=== PATIENT | female | born 1980 | race Caucasian/White ===

== ENCOUNTER → 2017-10-23 | Day surgery (SDC) | payer OTHER ==
[2017-10-02 16:02] VITALS: Ht 157.5 cm; Wt 68.8 kg
[~2017-10-23] VITALS: Ht 157.5 cm; Wt 68.8 kg
[~2017-10-23] MED LIST: ABL10 PO; ALPR-411 PO; ALPR1TAB3 PO; AMPH20TA2 PO; ATOR-22 PO; FNTTP25 EX; GEMF600T PO; IBUP-1050 PO; IBUPROFEN 600 MG TAB ONE; IBUPROFEN 600 MG TAB PO ONE; LACTATED RINGER'S 1000ML 1,000 ML IV SCH; METF1000 PO; METO50TA16 PO; OMEP40CA41 PO; ONDANSETRON 4MG OD TAB ONE; ONDANSETRON 4MG OD TAB PO ONE; OXYMTAB PO; PROM12.57 PO; PRZ/40 PO; SENN-61 PO; SITA100T3 PO; TIZA4CAP PO; TRAZ-122 PO
[2017-10-23 07:30] VITALS: BP 140/97; PULSE 80; TEMP 36.9; O2SAT 97
== END | disposition home or self-care (01) ==
LOC: C.ACU 06:40
PROVIDERS: ATTEND Internal Medicine
DX: I47.1 Supraventricular tachycardia (principal); Z53.9 Procedure and treatment not carried out, unspecified reason

== ENCOUNTER 2017-11-20 06:25 | Observation (INO) | payer OTHER ==
[2017-11-06 14:32] VITALS: BMI 27.0
[~2017-11-20] VITALS: Ht 157.5 cm; Wt 69.2 kg
[~2017-11-20 06:25] MED LIST changes: +CEFAZOLIN 1000MG IV PUSH 7.5 ML IV SCH; -IBUPROFEN 600 MG TAB ONE; -IBUPROFEN 600 MG TAB PO ONE; -ONDANSETRON 4MG OD TAB ONE; -ONDANSETRON 4MG OD TAB PO ONE
[2017-11-20 06:59] VITALS: BP 121/87; PULSE 94; TEMP 36.8; O2SAT 95; BMI 27.0
[2017-11-20] MEDS ORDERED: PROPOFOL IV EMULSION 10 MG/ML 100 ML VIAL IV ONE (07:27)
[2017-11-20] MEDS ORDERED: PROPOFOL IV EMULSION 10 MG/ML 20 ML VIAL IV ONE ×2 (07:47→10:57)
[2017-11-20] MEDS ORDERED: FENTANYL CITRATE INJ 50 MCG/1 ML 2 ML VIAL ONE ×3 (07:47→09:48)
[2017-11-20] MEDS ORDERED: LIDOCAINE HCL 2% 2 ML VIAL (20MG/ML) ONE (07:47)
[2017-11-20] MEDS ORDERED: MIDAZOLAM HCL 1 MG/ML 2ML VIAL ONE ×3 (07:47→08:32)
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
[2017-11-20] MEDS ORDERED: ISOPROTERENOL 200 MCG / 50ML D5W IV ONE ×2 (09:26→10:54)
[2017-11-20] MEDS ORDERED: PHENYLEPHRINE 100MCG/ML 5ML SYR ONE (09:54)
[2017-11-20] MEDS ORDERED: ATROPINE SULFATE 0.1 MG/ML 5ML SYR IV PRN (10:45)
[2017-11-20] MEDS ORDERED: ACETAMINOPHEN 325 MG TAB PO PRN (11:15)
[2017-11-20] MEDS ORDERED: IBUPROFEN 800 MG TAB PO PRN (11:15)
[2017-11-20] MEDS ORDERED: PROMETHAZINE HCL 25 MG TAB PO PRN (11:15)
--- NOTE | 2017-11-20 11:20 | [facility] Post Operative Brief Note ---
Immediate Operative Summary Operative Date Nov 20, 2017. Pre-Operative Diagnosis svt Post-Operative Diagnosis typical AVNRT Procedure(s) Performed EPS, 3d mapping of His bundle and C/S OS, LA pacing from C/S, isoprel drug challenge, slow pathway modification Surgeon rissa winston Gristmill Operator Surgeon(s) none Estimated Blood Loss <10cc Findings See Below see official report Fluids (cc crystalloids) 575 Specimens none Drains None Anesthesia Type MAC Complication(s) none Disposition Accompanied Pt To Recover: yes Disposition: rn cardiac cath holding-until PCU bed available
--- NOTE | 2017-11-20 11:22 | Discharge Instructions ---
Discharge Instructions Date of Service Nov 20, 2017. Admission Reason for Admission: Paroxysmal Supraventricular Tachycardia W/Anesthes Discharge Discharge Diagnosis / Problem: avnrt Discharge Goals Goal(s): Improve function Activity Recommendations Activity Limitations: as noted below Lifting Limitations: no more than 10 pounds (no heavy lifting or squating for 1 week) Shower/Bathe: tomorrow Driving or Machine Use: resume 1 day after discharge . Instructions / Follow-Up Instructions / Follow-Up ACTIVITY RECOMMENDATIONS: It is common to feel weak and fatigue for a few days. * Do not drive or operate any motorized equipment for the next 7 days. * Limit stair usage (2 or 3 trips a day only) for the next three days. * Do not lift anything heavier than 10 pounds for the next 7 days. * Do not engage in vigorous exercise or any sports for the next 7 days. * You may shower the day after your procedure, but do not immerse the area for three days. Cleanse the site gently with soap and water. SPECIAL CARE INSTRUCTIONS: * You may replace the pressure dressing or band-aid the morning after the procedure. * After your procedure, it is normal to have a small bruise or small lump at the site. Examine your site daily for any change in the bruise or lump, redness, swelling, drainage or numbness. Notify your doctor if any change. BLEEDING: * If there is a small amount of bleeding at the site, lie down and apply firm pressure with a clean cloth for ten minutes. When the bleeding stops, lie quietly keeping the procedure limb straight for six hours. Notify your doctor as soon as possible. * If the bleeding does not stop after ten minutes or if there is a large amount of bleeding or spurting, call 911 immediately. Continue to lie down and hold firm pressure until help arrives. SKIN IRRITATION: * You may experience some redness and/or swelling in the area where radiation was administered. If any skin irritation occurs, please contact your family physician. FOLLOW UP VISIT: Keep any scheduled doctor appointments. Current Hospital Diet Patient's current hospital diet: Regular Diet Discharge Diet Recommended Diet: Regular Diet Procedures Procedures Performed: EPS, 3d mapping of His bundle and C/S OS, LA pacing from C/S, isoprel drug challenge, slow pathway modification Pending Studies Studies pending at discharge: no Medical Emergencies . Who to Call and When: Medical Emergencies: If at any time you feel your situation is an emergency, please call 911 immediately. . Non-Emergent Contact Non-Emergency issues call your: Chute Tapper . . "Provider Documentation" section prepared by China Calloway. .
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
[2017-11-20] MEDS ORDERED: IV FLUIDS COMPLETED PRN (11:30)
--- NOTE | 2017-11-20 12:23 | Anesthesiology Progress Note ---
Anesthesia Post Op Note Date & Time Nov 20, 2017 at 12:23 Vital Signs Vital Signs Past 12 Hours Date Time Temp Pulse Resp B/P (MAP) Pulse Ox O2 Delivery O2 Flow Rate FiO2 11/20/17 11:45 95 16 111/83 (92) 93 Room Air 11/20/17 11:40 99 16 114/83 (93) 92 Nasal Cannula 3 11/20/17 11:35 96 16 112/87 (95) 96 Room Air 11/20/17 11:30 100 16 108/74 (85) 96 Room Air 11/20/17 06:59 36.8 94 20 121/87 (98) 95 Room Air Notes Mental Status: alert / awake / arousable, participated in evaluation Pt Amnestic to Procedure: Yes Nausea / Vomiting: adequately controlled Pain: adequately controlled Airway Patency, RR, SpO2: stable & adequate BP & HR: stable & adequate Hydration State: stable & adequate Anesthetic Complications: no major complications apparent
[2017-11-20 13:25] VITALS: BP 113/73; PULSE 105; TEMP 36.8; O2SAT 95; Ht 157.5 cm; Wt 69.2 kg
[2017-11-20 15:10] VITALS: BP 114/80; PULSE 95; TEMP 36.7; O2SAT 90
[2017-11-20] MEDS: METFORMIN HCL 500 MG TAB PO SCH (16:58)
[2017-11-20] MEDS: ALPRAZOLAM 0.5 MG TAB PO SCH (17:11)
[2017-11-20] MEDS ORDERED: NURSING VERBAL MED ORDER ONE (17:15)
[2017-11-20] MEDS ORDERED: FENTANYL PATCH REMOVE & WASTE SCH (17:59)
[2017-11-20] MEDS ORDERED: FENTANYL 25 MCG/HR TDSY TD SCH (18:00)
[2017-11-20] MEDS: NICOTINE 7 MG/24 HR TDSY EXT SCH (18:03)
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
[2017-11-20 19:30] VITALS: BP 109/76; PULSE 100; TEMP 37.3; O2SAT 92
[2017-11-20] MEDS ORDERED: ARIPIprazole TAB 10 MG TAB PO SCH (21:00)
[2017-11-20] MEDS ORDERED: ALPRAZOLAM 0.5 MG TAB PO SCH (21:00)
[2017-11-20] MEDS ORDERED: TRAZODONE HCL 100 MG TAB PO SCH (21:00)
[2017-11-20] MEDS ORDERED: OXYMORPHONE HCL 5 MG PO PRN (21:15)
[2017-11-20] MEDS ORDERED: OXYMORPHONE 5 MG PO PRN (21:30)
[2017-11-20] MEDS: METOPROLOL TARTRATE 50 MG TAB PO SCH (21:31)
[2017-11-20] MEDS: GEMFIBROZIL 600 MG TAB PO SCH (21:31)
[2017-11-20] MEDS: FLUOXETINE HCL 20 MG CAP PO SCH (21:32)
[2017-11-20 23:11] VITALS: BP 103/72; PULSE 98; TEMP 36.7; O2SAT 91
[2017-11-20] MEDS: CHECK FENTANYL PATCH PLACEMENT SCH (23:33)
[2017-11-21 03:58] VITALS: BP 105/73; PULSE 87; TEMP 36.5; O2SAT 91
[2017-11-21 07:38] VITALS: BP 105/75; PULSE 88; TEMP 36.7; O2SAT 92
[2017-11-21] MEDS: FLUOXETINE HCL 20 MG CAP PO SCH (08:13)
[2017-11-21] MEDS: METOPROLOL TARTRATE 50 MG TAB PO SCH (08:14)
[2017-11-21] MEDS: GEMFIBROZIL 600 MG TAB PO SCH (08:14)
[2017-11-21] MEDS: NICOTINE 7 MG/24 HR TDSY EXT SCH (08:15)
[2017-11-21] MEDS: METFORMIN HCL 500 MG TAB PO SCH (08:15)
[2017-11-21] MEDS: ALPRAZOLAM 0.5 MG TAB PO SCH (08:22)
[2017-11-21] MEDS: CHECK FENTANYL PATCH PLACEMENT SCH (08:24)
[2017-11-21 08:46] VITALS: BP 105/75; PULSE 88; TEMP 36.7; O2SAT 92
[2017-11-21] MEDS ORDERED: AMPHETAMINE ASP/SULF/DEXTRAMPH 20 MG TAB PO SCH (09:00)
[2017-11-21] MEDS ORDERED: PANTOprazole SOD 40 MG TAB PO SCH ×2 (09:00)
[2017-11-21] MEDS ORDERED: SITAGLIPTIN 100 MG TAB PO SCH (09:00)
[2017-11-21] MEDS ORDERED: ATORVASTATIN 20 MG TAB PO SCH (09:00)
[2017-11-21] MEDS ORDERED: AMPHETAMINE ASP/SULF/DEXTRAMPH 10 MG TAB PO SCH (09:00)
[2017-11-21] MEDS ORDERED: SENNA 8.6 MG TAB PO SCH (09:00)
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
== END 2017-11-21 10:15 | disposition home or self-care (01) ==
LOC: C.ACU 06:25 → C.2T 10:46 → ENRESERV 11:23
PROVIDERS: ADMIT Internal Medicine; ATTEND Internal Medicine
DX: I47.1 Supraventricular tachycardia (principal); R00.2 Palpitations; Z90.710 Acquired absence of both cervix and uterus; F41.9 Anxiety disorder, unspecified; F31.9 Bipolar disorder, unspecified; E11.9 Type 2 diabetes mellitus without complications; M79.7 Fibromyalgia; E78.5 Hyperlipidemia, unspecified; I10 Essential (primary) hypertension; G47.30 Sleep apnea, unspecified; Z79.899 Other long term (current) drug therapy; Z79.84 Long term (current) use of oral hypoglycemic drugs